=== PATIENT | female | born 1970 | race Caucasian/White ===

== ENCOUNTER 2016-08-09 10:49 | Emergency (ER) | payer MEDICAID ==
[2016-08-09] MEDS ORDERED: OPTIRAY 350 50 ML HMH IV ONE (10:50)
== END 2016-08-09 13:31 | disposition home or self-care (01) ==
LOC: ER 10:49
DX: G51.0 Bell's palsy (principal); J01.00 Acute maxillary sinusitis, unspecified
CPT/HCPCS: 70450; 70487